=== PATIENT | male | born 1930 | race Caucasian/White ===

== ENCOUNTER → 2016-12-19 | Outpatient (CLI) | payer MEDICARE, BC | LOC: MW.LAB 11:26 | PROVIDERS: ATTEND Internal Medicine | DX: I38 Endocarditis, valve unspecified (principal) | CPT/HCPCS: 36415; 85610 ==

== ENCOUNTER → 2017-01-23 | Outpatient (CLI) | payer MEDICARE, BC | END | disposition home or self-care (01) | LOC: MW.LAB 09:57 | PROVIDERS: ATTEND Internal Medicine | DX: I38 Endocarditis, valve unspecified (principal) | CPT/HCPCS: 36415; 85610 ==

== ENCOUNTER → 2017-02-05 | Outpatient (CLI) | payer MEDICARE, BC | END | disposition home or self-care (01) | LOC: MW.LAB 10:45 | PROVIDERS: ATTEND Internal Medicine | DX: I38 Endocarditis, valve unspecified (principal) | CPT/HCPCS: 36415; 85610 ==

== ENCOUNTER → 2017-02-20 | Outpatient (CLI) | payer MEDICARE, BC | LOC: MW.LAB 09:40 | PROVIDERS: ATTEND Internal Medicine | DX: I38 Endocarditis, valve unspecified (principal) | CPT/HCPCS: 36415; 85610 ==

== ENCOUNTER 2019-10-14 14:44 | Emergency (ER) | payer MEDICARE, BC ==
[2019-10-14] MEDS ORDERED: Lidocaine 1% 10 ML MDV INJECT ONE (15:35)
[2019-10-14 15:36] VITALS: BP 137/93; PULSE 65
--- NOTE | 2019-10-14 15:36 | EDM.PDOC ---
ED HPI GENERAL MEDICAL PROBLEM - General Chief Complaint: Upper Extremity Injury/Pain Stated Complaint: INJURED/CUT FINGER Time Seen by Provider: 10/14/19 15:35 Source of Information: Reports: Patient History Limitations: Reports: No Limitations - History of Present Illness INITIAL COMMENTS - FREE TEXT/NARRATIVE: HISTORY AND PHYSICAL: History of present illness: Patient is an 89-year-old male presents to the ED with complaint of laceration to his left point finger. Patient states he was cleaning behind his radiator and pinch his finger about 2-3 hours prior to arrival to the ED. Patient is on anticoagulants and states he can't get it to stop bleeding. He has no other complaints at this time. He is UTD on tetanus. Review of systems: As per history of present illness and below otherwise all systems reviewed and negative. Past medical history: As per history of present illness and as reviewed below otherwise noncontributory. Surgical history: As per history of present illness and as reviewed below otherwise noncontributory. Social history: No reported history of drug or alcohol abuse. Family history: As per history of present illness and as reviewed below otherwise noncontributory. Physical exam: General: Patient sitting comfortably in no acute distress and nontoxic appearing HEENT: Atraumatic, normocephalic, pupils reactive, negative for conjunctival pallor or scleral icterus, mucous membranes moist, throat clear, neck supple, nontender, trachea midline. No meningeal signs. Lungs: Clear to auscultation, breath sounds equal bilaterally, chest nontender. Heart: S1S2, regular, negative for clicks, rubs, or overt murmur. Abdomen: Soft, nondistended, nontender. Negative for masses or hepatosplenomegaly. Negative for costovertebral tenderness. No rigidity, rebound , guarding. Pelvis: Stable nontender. Genitourinary: Deferred. Rectal: Deferred. Extremities: 1cm Laceration on both the dorsal and palmar aspect of the left pointer finger between the PIP and DIP. Atraumatic, negative for cords or calf pain. Neurovascular unremarkable. Neuro: Awake, alert, oriented. Cranial nerves II through XII unremarkable. Cerebellum unremarkable. Motor and sensory unremarkable throughout. Exam nonfocal. Notes: Diagnostics: none Therapeutics: Laceration repair - see procedure note Prescriptions: Impression: Laceration Definitive disposition and diagnosis as appropriate pending reevaluation and review of above. Left Finger-Index Pain Score (Numeric/FACES): 5 - Related Data Allergies Allergy/AdvReac Type Severity Reaction Status Date / Time No Known Allergies Allergy Verified 10/14/19 15:32 Home Meds: Home Meds Losartan [Cozaar] 100 mg PO DAILY 01/23/15 [History] Multivitamin [Multivitamins] 1 each PO DAILY 01/23/15 [History] Triamterene/Hydrochlorothiazid [Triamterene-HCTZ 75-50 MG] 1 tab PO ASDIRECTED 01/23/15 [History] Warfarin Sodium [Jantoven] 2.5 mg PO TUTH 01/23/15 [History] Warfarin Sodium [Jantoven] 5 mg PO SUMOWEFRSA 01/23/15 [History] atorvaSTATin [Lipitor] 20 mg PO DAILY 01/23/15 [History] cloNIDine [Catapres] 0.1 mg PO Q8H #90 tablet 04/30/15 [Rx] Review of Systems - Review of Systems Review Of Systems: Comprehensive ROS is negative, except as noted in HPI. ED EXAM, GENERAL - Physical Exam Exam: See Below (see dictation) Course - Vital Signs Last Recorded V/S: Last Vital Signs Temp 97.3 F 10/14/19 15:33 Pulse 65 10/14/19 15:33 Resp 16 10/14/19 15:33 BP 137/93 H 10/14/19 15:33 Pulse Ox 95 10/14/19 15:33 - Orders/Labs/Meds Meds: Medications Discontinued Medications Generic Name Dose Route Start Last Admin Trade Name Liset PRN Reason Stop Dose Admin Lidocaine HCl 10 ml 10/14/19 15:35 Xylocaine 1% INJECT 10/14/19 15:36 ONETIME ONE Lidocaine HCl Confirm 10/14/19 15:42 Xylocaine-Mpf 1% Administered 10/14/19 15:43 Dose 5 ml .ROUTE .STK-MED ONE Departure - Departure Time of Disposition: 16:03 Disposition: Home, Self-Care 01 Condition: Good Clinical Impression: Laceration - Discharge Information Referrals: Alek Aguilar MD [Primary Care Provider] - Forms: ED Department Discharge Additional Instructions: The following information is given to patients seen in the emergency department who are being discharged to home. This information is to outline your options for follow-up care. We provide all patients seen in our emergency department with a follow-up referral. The need for follow-up, as well as the timing and circumstances, are variable depending upon the specifics of your emergency department visit. If you don't have a primary care physician on staff, we will provide you with a referral. We always advise you to contact your personal physician following an emergency department visit to inform them of the circumstance of the visit and for follow-up with them and/or the need for any referrals to a consulting specialist. The emergency department will also refer you to a specialist when appropriate. This referral assures that you have the opportunity for follow-up care with a specialist. All of these measure are taken in an effort to provide you with optimal care, which includes your follow-up. Under all circumstances we always encourage you to contact your private physician who remains a resource for coordinating your care. When calling for follow-up care, please make the office aware that this follow-up is from your recent emergency room visit. If for any reason you are refused follow-up, please contact the [facility] at and asked to speak to the emergency department charge nurse. [facility] [address] [place] [address] [address] Keep the area clean and dry as instructed Follow up in 10 days for suture removal Return to ED as needed as discussed Sepsis Event Note - Evaluation Sepsis Screening Result: No Definite Risk - Focused Exam Vital Signs: Vital Signs Temp Pulse Resp BP Pulse Ox 10/14/19 15:33 97.3 F 65 16 137/93 H 95 Date Exam was Performed: 10/14/19 Time Exam was Performed: 16:03
== END 2019-10-14 16:25 | disposition home or self-care (01) ==
LOC: MW.ED 14:44
DX: S61.211A Laceration without foreign body of left index finger without damage to nail, initial encounter (principal); Z79.01 Long term (current) use of anticoagulants; W23.1XXA Caught, crushed, jammed, or pinched between stationary objects, initial encounter
CPT/HCPCS: 12001; 99282; J2001